=== PATIENT | male | born 1990 | race Hispanic/Latino ===

== ENCOUNTER 2020-06-29 11:30 | Emergency (ER) | payer OTHER ==
[~2020-06-29] VITALS: Ht 172.7 cm; Wt 105.0 kg
[2020-06-29] MEDS ORDERED: CIPROFLOXACN500 MG PO (12:21)
[2020-06-29 12:51] VITALS: BP 130/80
== END 2020-06-29 12:59 | disposition home or self-care (01) | DRG 605 ==
LOC: ED 11:30
DX: S91.331A Puncture wound without foreign body, right foot, initial encounter (principal); W45.0XXA Nail entering through skin, initial encounter; Y92.096 Garden or yard of other non-institutional residence as the place of occurrence of the external cause